=== PATIENT | female | born 1955 | race Caucasian/White ===

== ENCOUNTER 2023-10-14 22:19 | Emergency (ER) | payer MEDICAID ==
[~2023-10-14] VITALS: Ht 162.6 cm; Wt 65.8 kg
[2023-10-14 22:30] VITALS: TEMP 98.5
[2023-10-14] MEDS ORDERED: HYDROCODONE/APAP 5/325MG TABLET ONE (22:50)
[2023-10-14] MEDS: HYDROCODONE/APAP 5/325MG TABLET PO ONE (22:56)
[2023-10-15 00:12] VITALS: BP 138/86; O2SAT 98
== END 2023-10-15 00:13 | disposition home or self-care (01) ==
LOC: ER 22:23
DX: S13.4XXA Sprain of ligaments of cervical spine, initial encounter (principal); S39.012A Strain of muscle, fascia and tendon of lower back, initial encounter; V49.49XA Driver injured in collision with other motor vehicles in traffic accident, initial encounter; Y93.89 Activity, other specified; Y92.488 Other paved roadways as the place of occurrence of the external cause; Y99.8 Other external cause status
CPT/HCPCS: 72125-TC; 72131-TC